=== PATIENT | female | born 1975 ===

== ENCOUNTER → 2024-05-13 | Outpatient (CLI) | payer OTHER | LOC: LAB 08:10 → LAB SHORT 08:10 | DX: R87.614 Cytologic evidence of malignancy on smear of cervix (principal) | CPT/HCPCS: 88305 ==

== ENCOUNTER → 2024-05-29 | Outpatient (CLI) | payer OTHER | END | disposition home or self-care (01) | LOC: LAB 09:17 → LAB SHORT 09:17 | DX: D06.9 Carcinoma in situ of cervix, unspecified (principal) | CPT/HCPCS: 88305 ==